=== PATIENT | female | born 1980 | race Caucasian/White ===

== ENCOUNTER 2018-04-27 01:01 | Emergency (ER) | payer OTHER ==
[~2018-04-27] VITALS: Ht 63.5 cm; Wt 65.3 kg
[2018-04-27] MEDS ORDERED: ORAL BIRTH CONTROL (01:32)
[2018-04-27] MEDS ORDERED: GABA100 PO (01:32)
[2018-04-27 01:52] LABS: BASOPHILS ABSOLUTE AUTO 0.04 K/mm3 (0.00-0.23); BASOPHILS PERCENT AUTO 1 % (0-2); EOSINOPHILS ABSOLUTE AUTO 0.14 K/mm3 (0.00-0.68); EOSINOPHILS PERCENT AUTO 2 % (0-6); Hematocrit 43.6 % (33.0-51.0); Hemoglobin 14.2 g/dL (11.5-16.0); IMMATURE GRAN ABSOLUTE AUTO 0.03 K/mm3 (0.00-0.10); IMMATURE GRAN PERCENT AUTO 0 % (0-1); LYMPHOCYTES ABSOLUTE AUTO 2.75 K/mm3 (0.84-5.20); LYMPHOCYTES PERCENT AUTO 33 % (21-46); MONOCYTES ABSOLUTE AUTO 0.51 K/mm3 (0.16-1.47); MONOCYTES PERCENT AUTO 6 % (4-13); Mean Corpuscular HGB 28.3 pg (26.0-34.0); Mean Corpuscular HGB Conc 32.6 g/dL (31.5-36.5); Mean Corpuscular Volume 87 fL (80-100); Mean Platelet Volume 9.6 fL (9.1-12.4); NEUTROPHILS ABSOLUTE AUTO 4.84 K/mm3 (1.96-9.15); NEUTROPHILS PERCENT AUTO 58 % (41-73); Platelet Count 341 K/mm3 (150-400); RDW Coefficient Variation 14.2 % (11.7-14.2); RDW Standard Deviation 45.5 fL (35.1-46.3); Red Blood Cell Count 5.01 M/mm3 (3.80-5.20); White Blood Cell Count 8.31 K/mm3 (4.00-11.30)
[2018-04-27 02:10] LABS: Alanine Aminotransfer (ALT/SGP 26 U/L (12-78); Albumin, Blood 3.8 g/dL (3.4-5.0); Albumin/Globulin Ratio 0.9 (0.8-1.8); Alk Phos 75 U/L (50-136); Anion Gap 8 mmol/L (6-16); Aspartate Aminotrans (AST/SGOT 20 U/L (12-37); Bilirubin, Total 0.3 mg/dL (0.1-1.0); Blood Urea Nitrogen 13 mg/dL (8-24); Bun/Creatinine Ratio 16.9 (12.0-20.0); CO2, Blood 23 mmol/L (21-32); Calcium, Blood 8.6 mg/dL (8.5-10.1); Chloride, Blood 110 mmol/L (98-108); Creatinine, Blood 0.77 mg/dL (0.40-1.00); Globulin, Blood 4.2 g/dL (2.2-4.0); Glomerular Filtration Rate >60 (60-); Glucose, Blood 89 mg/dL (70-99); Potassium, Blood 3.9 mmol/L (3.5-5.5); Sodium, Blood 141 mmol/L (136-145)
== END 2018-04-27 03:30 | disposition home or self-care (01) ==
LOC: ER 01:01
PROVIDERS: Emergency Medicine
DX: N80.9 Endometriosis, unspecified (principal); Z88.5 Allergy status to narcotic agent; Z88.8 Allergy status to other drugs, medicaments and biological substances; Z79.899 Other long term (current) drug therapy
CPT/HCPCS: 36415; 74176; 80053; 83690; 85025; 96361; 96374; 96375; 96376; 99284-25; J1170; J2405; J7030

== ENCOUNTER 2019-07-13 08:56 | Emergency (ER) | payer OTHER ==
[~2019-07-13] VITALS: Ht 157.5 cm; Wt 62.6 kg
[~2019-07-13 08:56] MED LIST: GABA100 PO; ORAL BIRTH CONTROL
[2019-07-13] MEDS ORDERED: Voltaren100 GM TOP (09:53)
[2019-07-13] MEDS ORDERED: Norco 5-325 Ta1 EACH PO (09:53)
[2019-07-13] MEDS ORDERED: CYCL10 PO (09:53)
== END 2019-07-13 10:00 | disposition home or self-care (01) ==
LOC: ER 08:56
DX: M54.2 Cervicalgia (principal); Z88.5 Allergy status to narcotic agent; Z88.8 Allergy status to other drugs, medicaments and biological substances; Z79.899 Other long term (current) drug therapy
CPT/HCPCS: 99283

== ENCOUNTER 2019-08-18 08:57 | Day surgery (SDC) | payer OTHER ==
[~2019-08-18] VITALS: Ht 154.9 cm; Wt 58.4 kg
[~2019-08-18 08:57] MED LIST changes: +CYCL10 PO; +Norco 5-325 Ta1 EACH PO; +Voltaren100 GM TOP
[2019-08-18] MEDS ORDERED: BACL10 PO ×2 (13:31→13:33)
[2019-08-18] MEDS ORDERED: DICLOFENAC SOD100 G1 TOP (13:31)
[2019-08-18] MEDS ORDERED: Excedrin Extra1 EACH PO (13:32)
[2019-08-18] MEDS ORDERED: ONDA4 (13:33)
[2019-08-18] MEDS ORDERED: PSEU120ER PO (13:33)
[2019-08-18] MEDS ORDERED: Zantac150 MG PO (13:33)
--- NOTE | 2019-08-18 13:48 | NUR ---
08/18/19 6366 Karon Kinney PT STATES HER PAIN IS NOW TOLERABLE 08/11. PT DENIES NAUSEA. PT TOLERATING PO FLUIDS AND SNACKS WELL. RN WENT OVER DISCHARGE INSTRUCTIONS UNITL ALL QUESTIONS WERE ANSWERED. PT READY FOR DISCHARGE.
--- NOTE | 2019-08-18 14:04 | NUR ---
08/18/19 1404 Mansi Prince TRANSDERMAL SCOPALOMINE PATCH APPLIED IN PACU PER DR NAT OSHEA
== END 2019-08-18 14:00 | disposition home or self-care (01) ==
LOC: ORSCSDS 08:57
PROVIDERS: Orthopaedic Surgery
PROC: 0SPD04Z Removal of Internal Fixation Device from Left Knee Joint, Open Approach (ICD-10-PCS; principal; 2019-08-18 10:30)
DX: Z96.9 Presence of functional implant, unspecified (principal); T84.84XA Pain due to internal orthopedic prosthetic devices, implants and grafts, initial encounter; M17.9 Osteoarthritis of knee, unspecified; Z79.899 Other long term (current) drug therapy
CPT/HCPCS: J0690; J2250; J2405; J3010; J7120

== ENCOUNTER 2020-01-11 00:52 | Inpatient (IN) | payer OTHER ==
[~2020-01-11] VITALS: Ht 154.9 cm; Wt 58.7 kg
[~2020-01-11 00:52] MED LIST changes: +BACL10 PO; +DICLOFENAC SOD100 G1 TOP; +Excedrin Extra1 EACH PO; +ONDA4; +PSEU120ER PO; +Zantac150 MG PO
[2020-01-11 01:17] LABS: BASOPHILS ABSOLUTE AUTO 0.04 K/mm3 (0.00-0.23); BASOPHILS PERCENT AUTO 0 % (0-2); EOSINOPHILS ABSOLUTE AUTO 0.06 K/mm3 (0.00-0.68); EOSINOPHILS PERCENT AUTO 1 % (0-6); Hematocrit 47.5 % (33.0-51.0); Hemoglobin 15.9 g/dL (11.5-16.0); IMMATURE GRAN ABSOLUTE AUTO 0.07 K/mm3 (0.00-0.10); IMMATURE GRAN PERCENT AUTO 1 % (0-1); LYMPHOCYTES ABSOLUTE AUTO 2.17 K/mm3 (0.84-5.20); LYMPHOCYTES PERCENT AUTO 17 % (21-46); MONOCYTES ABSOLUTE AUTO 0.52 K/mm3 (0.16-1.47); MONOCYTES PERCENT AUTO 4 % (4-13); Mean Corpuscular HGB 28.6 pg (26.0-34.0); Mean Corpuscular HGB Conc 33.5 g/dL (31.5-36.5); Mean Corpuscular Volume 85 fL (80-100); Mean Platelet Volume 9.3 fL (9.1-12.4); NEUTROPHILS ABSOLUTE AUTO 10.25 K/mm3 (1.96-9.15); NEUTROPHILS PERCENT AUTO 78 % (41-73); Platelet Count 310 K/mm3 (150-400); RDW Standard Deviation 40.5 fL (35.1-46.3); Red Blood Cell Count 5.56 M/mm3 (3.80-5.20); White Blood Cell Count 13.11 K/mm3 (4.00-11.30)
[2020-01-11 01:38] LABS: Alanine Aminotransfer (ALT/SGP 20 U/L (12-78); Albumin, Blood 4.5 g/dL (3.4-5.0); Albumin/Globulin Ratio 1.1 (0.8-1.8); Alk Phos 89 U/L (50-136); Anion Gap 7 mmol/L (6-16); Aspartate Aminotrans (AST/SGOT 18 U/L (12-37); Bilirubin, Total 0.5 mg/dL (0.1-1.0); Blood Urea Nitrogen 12 mg/dL (8-24); CO2, Blood 25 mmol/L (21-32); Calcium, Blood 9.6 mg/dL (8.5-10.1); Chloride, Blood 108 mmol/L (98-108); Creatinine, Blood 0.75 mg/dL (0.40-1.00); Glomerular Filtration Rate >60 (60-); Glucose, Blood 144 mg/dL (70-99); Potassium, Blood 4.4 mmol/L (3.5-5.5); Sodium, Blood 140 mmol/L (136-145); Total Protein, Blood 8.5 g/dL (6.4-8.2); Troponin I <0.015 ng/mL (0.000-0.040)
[2020-01-11] MEDS ORDERED: PSEU120ER PO (05:54)
[2020-01-11 06:20] LABS: Free Thyroxine 1.43 ng/dL (0.70-1.60)
[2020-01-11 06:21] LABS: Thyroid Stimulating Hormone 7.73 uIU/mL (0.360-4.800)
--- NOTE | 2020-01-11 07:35 | NUR ---
PT T/F FROM ER TO MEDICAL FLOOR THIS MORNING. AAOX3. TACHYCARDIC- PT REPORTS FEELING SOME ANXIETY. IV NS @ 100/HR. PT DENIES N/V AT TOA. STATES PAIN IS TOLERABLE. ABD DISTENTION NORMAL PER PT. TENDERNESS THROUGOUT ABD. BT ACTIVE. PT REPORTS PASSING FLATUS LAST NIGHT. CURRENTLY NPO. ZOFRAN GIVEN FOR NAUSEA. BED LOW, CALL BUTTON EXPLAINED AND WITHIN REACH.
--- NOTE | 2020-01-11 12:12 | NUR ---
PER DR. SLOAN, CANCEL NS 1.5L AND KEEP NS CONTINUOUS. ALSO, CHANGED NEURONTIN TO 100 MG TID.
--- NOTE | 2020-01-11 13:09 | NUR ---
Upon receiving an admit referral for spiritual care, I visit patient. Patient is lying in bed and resting but easily awakens to the sound of her name. Patient immediately shares about her [employer] (patient attends [address] [place] [address]), the many stressors in her life ( including; having 2 special needs children at home and trying to work at home and manage her 3 children) and about her medical issues. I listen empathically, encourage self-care, reinforce helpful attitudes and practices and provide anxiety containment, pastoral spiritual counselor and prayer. Patient responds well and shows signs of reduced stress. Patient voices appreciation for the visit. i will continue to remain available to patient and family.
--- NOTE | 2020-01-11 16:56 | NUR ---
PT C/O ABDOMINAL PAIN THAT IS SHARP AND CONSTANT IN NATURE. PT ALSO HAD GREENISH CLEAR EMESIS WITH C/O PAIN AND EXERTION. DR. SLOAN NOTIFIED, ORDER RECEIVED FOR COMPAZINE IV AND SURGICAL CONSULT.
--- NOTE | 2020-01-11 18:47 | NUR ---
Shift Summary A/Ox4, pleasant and cooperative with care. Calls appropriately for needs. Medicated for 03/11 abd & epigastric pain x 2 per EMAR with short term good results. Medicated for nausea x 2, had 2 episodes of green clear bilious emesis. Patient remains NPO except Gabapentin as patient tolerates. Dr. Emerson consulted and seen patient this evening. Up in room with SBA d/t abdominal pain and narcotics for safety. Will continue to monitor.
[2020-01-12 04:37] LABS: BASOPHILS ABSOLUTE AUTO 0.01 K/mm3 (0.00-0.23); BASOPHILS PERCENT AUTO 0 % (0-2); EOSINOPHILS ABSOLUTE AUTO 0.01 K/mm3 (0.00-0.68); EOSINOPHILS PERCENT AUTO 0 % (0-6); Hematocrit 40.5 % (33.0-51.0); Hemoglobin 13.1 g/dL (11.5-16.0); IMMATURE GRAN ABSOLUTE AUTO 0.01 K/mm3 (0.00-0.10); IMMATURE GRAN PERCENT AUTO 0 % (0-1); LYMPHOCYTES ABSOLUTE AUTO 0.73 K/mm3 (0.84-5.20); LYMPHOCYTES PERCENT AUTO 16 % (21-46); MONOCYTES ABSOLUTE AUTO 0.38 K/mm3 (0.16-1.47); MONOCYTES PERCENT AUTO 8 % (4-13); Mean Corpuscular HGB 28.2 pg (26.0-34.0); Mean Corpuscular HGB Conc 32.3 g/dL (31.5-36.5); Mean Corpuscular Volume 87 fL (80-100); Mean Platelet Volume 9.8 fL (9.1-12.4); NEUTROPHILS ABSOLUTE AUTO 3.41 K/mm3 (1.96-9.15); NEUTROPHILS PERCENT AUTO 75 % (41-73); Platelet Count 234 K/mm3 (150-400); RDW Coefficient Variation 13.1 % (11.7-14.2); RDW Standard Deviation 41.7 fL (35.1-46.3); Red Blood Cell Count 4.64 M/mm3 (3.80-5.20); White Blood Cell Count 4.55 K/mm3 (4.00-11.30)
[2020-01-12 05:19] LABS: Alanine Aminotransfer (ALT/SGP 15 U/L (12-78); Albumin, Blood 3.2 g/dL (3.4-5.0); Albumin/Globulin Ratio 1.1 (0.8-1.8); Alk Phos 63 U/L (50-136); Anion Gap 5 mmol/L (6-16); Aspartate Aminotrans (AST/SGOT 13 U/L (12-37); Bilirubin, Total 1.5 mg/dL (0.1-1.0); Blood Urea Nitrogen 12 mg/dL (8-24); Bun/Creatinine Ratio 20.1 (12.0-20.0); CO2, Blood 26 mmol/L (21-32); Chloride, Blood 110 mmol/L (98-108); Glomerular Filtration Rate >60 (60-); Glucose, Blood 118 mg/dL (70-99); Potassium, Blood 3.6 mmol/L (3.5-5.5); Sodium, Blood 141 mmol/L (136-145)
[2020-01-12 05:21] LABS: Calcium, Blood 7.6 mg/dL (8.5-10.1); Total Protein, Blood 6.2 g/dL (6.4-8.2)
--- NOTE | 2020-01-12 06:28 | NUR ---
SHIFT SUMMARY PT IS A 39 Y/O FEMALE, ADMITTED FOR AN EARLY SBO. PT IS NPO WITH NS @ 100 ML/HR CONTINUOUS. SHE IS A&O X 3, SBA TO THE BATHROOM. SHE WAS MEDICATED FOR PAIN WITH FENTANYL X 2, AND FOR NAUSEA WITH ZOFRAN AND COMPAZINE. NO COMPLAINTS OF SOB. HR WAS SLIGHTLY TACHY IN THE 100S. VITAL SIGNS OTHERWISE STABLE. NO OTHER ACUTE CHANGES IN PT CONDITION NOTED. WILL CONTINUE TO MONITOR AND TREAT PER EMAR UNTIL HAND OFF TO DAY SHIFT RN.
--- NOTE | 2020-01-12 13:06 | NUR ---
Surgical site prepped with 2% Chlorhexidine cloth wipe. History, Chart, Medications and Allergies reviewed before start of procedure. Lungs clear T/O to Auscultation. Patient confirms NPO status and agrees with scheduled surgery. Pre-Op teaching done. Pt verbalizes understanding.
--- NOTE | 2020-01-12 15:55 | NUR ---
REPORT GIVEN TO LÓPEZ AT 1551 WHO WILL ASSUME CARE AT THIS TIME.
--- NOTE | 2020-01-12 16:25 | NUR ---
01/12/20 1625 Sonja Curiel VERIFICATIONS: EDIT CHART.
--- NOTE | 2020-01-12 16:45 | NUR ---
PT ARRIVED TO ROOM 228 FROM PACU S/P SBO RESECTION MIDLINE DRESSING EDMOND C/D/I PT REPORTS MIN PAIN 3/10 PT NO NAUSEA ABSENT BT'SX4 PT OK TO HAVE SIPS AND CHIPS ONLY
--- NOTE | 2020-01-12 18:35 | NUR ---
PT SLEEPING WAKES TO VERBAL STIMULI STATED PAIN IS 2-3/10 ASSISTED TO BATHROOM TO VOID
[2020-01-13 05:30] LABS: Hematocrit 37.9 % (33.0-51.0); Hemoglobin 12.4 g/dL (11.5-16.0); Mean Corpuscular HGB 28.9 pg (26.0-34.0); Mean Corpuscular HGB Conc 32.7 g/dL (31.5-36.5); Mean Corpuscular Volume 88 fL (80-100); Mean Platelet Volume 9.8 fL (9.1-12.4); Platelet Count 208 K/mm3 (150-400); RDW Coefficient Variation 13.6 % (11.7-14.2); RDW Standard Deviation 44.5 fL (35.1-46.3); Red Blood Cell Count 4.29 M/mm3 (3.80-5.20); White Blood Cell Count 6.42 K/mm3 (4.00-11.30)
[2020-01-13 05:54] LABS: Anion Gap 5 mmol/L (6-16); Blood Urea Nitrogen 10 mg/dL (8-24); CO2, Blood 26 mmol/L (21-32); Calcium, Blood 7.9 mg/dL (8.5-10.1); Chloride, Blood 109 mmol/L (98-108); Creatinine, Blood 0.59 mg/dL (0.40-1.00); Glomerular Filtration Rate >60 (60-); Glucose, Blood 103 mg/dL (70-99); Potassium, Blood 3.7 mmol/L (3.5-5.5); Sodium, Blood 140 mmol/L (136-145)
[2020-01-13 06:05] LABS: BAND PERCENT MAN 39 % (0-8); BASOPHILS PERCENT MAN 0 % (0-2); EOSINOPHILS PERCENT MAN 0 % (0-6); LYMPHOCYTES ABSOLUTE MAN 0.89 K/mm3 (0.84-5.20); LYMPHOCYTES PERCENT MAN 14 % (21-46); MONOCYTES ABSOLUTE MAN 0.77 K/mm3 (0.16-1.47); MONOCYTES PERCENT MAN 12 % (4-13); NEUTROPHILS ABSOLUTE MAN 4.75 K/mm3 (1.96-9.15); SEG NEUTROPHILS PERCENT MAN 35 % (41-73); TOTAL CELLS COUNTED 100
--- NOTE | 2020-01-13 06:52 | NUR ---
SUMMARY PT AMBULATORY WITH SBA. VERB ADEQUATE PAIN CONTROL. NO C/O NAUSEA. NO FLATUS TONIGHT. VOIDING WITHOUT DIFF. SITTING UP IN BED THIS AM. TALKATIVE AND PLEASANT.
--- NOTE | 2020-01-13 20:17 | NUR ---
END OF SHIFT SUMMARY: PATIENT PAIN CONTROLLED WITH PRN MEDICATIONS, REPOSITIONING AND HEAT. PATIENT AMBULATED GENTLY IN THE SOTO MULTIPLE TIMES. PATIENT UP TO CHAIR ONE TIME. PATIENT CONTINUED TO DENY FLATUS THROUGHOUT HER SHIFT. PATIENT TOLERATED CLEAR LIQUID DIET WITHOUT INCREASED PAIN, NAUSEA OR ABD CRAMPING. PATIENT DENIED NAUSEA OR INCREASED DISCOMFORT UNTIL THE END OF SHIFT. PAIN STARTED INCREASING AROUND DINNER TIME. AFTER PRN PAIN MEDICATION ADMINISTERED (SEE EMAR), PATIENT CONTINUED TO HAVE INCREASED PAIN AND NAUSEA . DISCUSSED WITH CUBE CUTTER. DISCUSSED WITH PATIENT THE PROCESS OF INCREASING THE MOTILITY OF THE GUT CAN SOMETIMES LEAD TO INCREASED PAIN. MEDICATED FOR BREAKTHROUGH PAIN AND NAUSEA. PATIENT REPORTED INCREASED COMFORT.
--- NOTE | 2020-01-14 16:00 | NUR ---
LATE ENTRY: LOVENOX: 1300 PATIENT REQUESTING THAT HER LOVENOX BE DISCONTINUED. DISCUSSED WITH DR. SLOAN. NEW ORDER RECEIVED TO DISCONTINUE LOVENOX. DISCUSSED THE RISK AND BENEFITS CAREFULLY WITH THE PATIENT (INCREASED POTENTIAL FOR BLOOD CLOT FORMATION VS. NO LONGER HAVE AN INJECTION). AFTER THIS DISCUSSION, PATIENT REPORTED THAT SHE WOULD LIKE TO RECEIVE TODAY'S DOSE.
--- NOTE | 2020-01-14 19:35 | NUR ---
SHIFT SUMMARY: PATIENT INITALLY EXPRESSED SOME NAUSEA IN THE AM. MEDICATED PER PRNS AND PROVIDED WITH A WARM BLANKET. PATIENT DECIDED LATER IN THE DAY TO WORK ON CLEAR LIQUIDS AGAIN RATHER THAN FULL LIQUIDS. PATIENT TOLERATING WITHOUT INCREASED CRAMPING OR DISCOMFORT. PATIENT AMBULATED IN THE SOTO MULTIPLE TIMES. PATIENT USED REPOSITIONING AND STANDING IN THE ROOM TO HELP WITH GAS BUBBLES AND COMFORT. PATIENT REPORTS THAT SHE CAN FEEL THE GAS IN HER ABDOMEN, BUT STILL HAS YET TO PASS ANY. PATIENT HAS HAD SOME BURPS. PATIENT HAS BOWEL TONES IN ALL 4 QUADRANTS, MORE PROMINENT ON THE RIGHT SIDE THAN THE LEFT. PATIENT ALSO REPORTS MORE PAIN ON THE RIGHT SIDE THAN THE LEFT. EDUCATION PROVIDED ON THE NEED TO CONTINUE TO STAY WITH LIQUIDS AND EASY TO TOLERATE FOODS UPON DISCHARGE. PATIENT REPORTS UNDERSTANDING.
--- NOTE | 2020-01-14 21:20 | NUR ---
PT UP IN HALLS. INCREASED ABD DISTENSION NOTED, BUT FIRST TIME PASSING FLATUS WHEN BACK IN ROOM.
--- NOTE | 2020-01-15 08:10 | NUR ---
SUMMARY PT PASSING SMALL AMNTS FLATUS TONIGHT.INCREASED BLOATING NOTED WITH DISCOMFORT.
--- NOTE | 2020-01-15 16:24 | NUR ---
SHIFT SUMMARY PT CONT TO HAVE NAUSEA THIS SHIFT. LARGE AMOUNTS OF DARK GREEN LIQUID EMESIS X2 THIS SHIFT. ZOFRAN GIVEN PER ORDERS. BTS HYPOACTIVE AND PT REPORTS FEELING MORE BLOATED AND REPORTS PASSING MINIMAL GAS. ONLY TOLERATING SMALL SIPS OF CLEAR LIQS. PT INDEP IN ROOM AND HAS AMBULATED HALLWAY AND HAS BEEN IN CHAIR TODAY. PT REPORTS TOLERABLE PAIN TO ABD AND DENIES NEED FOR PAIN MEDICATIONS. EDMOND WOUND VAC TO MIDLINE ABD REMAINS UNCHANGED. PT NPO CURRENTLY EXCEPT FOR SMALL SIPS AND CHIPS. PT USES CALL LIGHT APPROPRIATELY.
--- NOTE | 2020-01-15 21:59 | NUR ---
HOPE'S IV DEMONSTRATED A SMALL AMOUNT OF LEAKAGE WHEN FLUSHED. IT IS CURRENTLY SALINE LOCKED. SHE STATES THAT SHE DOES NOT WISH TO HAVE IT REMOVED AT THIS TIME D/T THE SIGNIFICANT DIFFICULTY THAT SHE HAS HAD IN THE PAST WITH IV PLACEMENT WHICH SHE ATTRIBUTES TO SMALL VESSELS D/T HER HEART HX.
--- NOTE | 2020-01-16 04:37 | NUR ---
SHIFT SUMMARY: SATHISH IS A&OX4, TOLERATING SIPS AND ICE CHIPS WELL, SHE IS OTHERWISE NPO. VSS, NO ACUTE EVENTS OVERNIGHT, ORA. SHE IS INDEPENDENT IN THE ROOM AND AMBULATING THE HALLWAY. SHE REPORTS PASSING INCREASED AMOUNTS OF FLATUS WELL BURPING. SHE REPORTS ADEQUATE PAIN CONTROL WITH ONE TABLET OF NORCO 5/325 MG. SHE DID TAKE THE ZOFRAN FOR NAUSEA EARLY IN THE SHIFT. EDMOND TO MIDLINE ABD DRSG. SHE IS ABLE TO MAKE HER NEEDS KNOWN. SHE IS LYING IN BED WITH THE CALL LIGHT IN REACH. WILL REPORT TO DAY SHIFT RN.
--- NOTE | 2020-01-16 12:12 | NUR ---
Patient is sitting up in bed and alert. Patient immediately tells me that she had a horrible day yesterday but is in much better spirits today. She talks about how much she misses her family and how much they miss her. I turn patient's conversation to all the wonderful things waiting for her when she returns home. Patient talks about the orthodox people willing to come over and help her, about her family's response when she walks through the door and about that first night back in her own bed. I listen empatically, highlight all the good up ahead, and provide pastoral industrial relations counselor and prayer. Patient responds well and shows signs of an elevated mood.
--- NOTE | 2020-01-16 16:44 | NUR ---
SHIFT SUMMARY PT REPORTS FEELING BETTER TODAY THAN YESTERDAY. SHE REPORTS PASSING MODERATE AMOUNTS OF FLATUS AND FEELING LESS BLOATED. DENIES N/V. SLOWLY DANK CLEAR LIQ DIET AND CAN ADVANCE TOLERATED BUT PT WANTS TO STAY WITH CLEARS AT THIS TIME. PT HAS DENIED NEEDING PAIN MEDICATION. MIDLINE EDMOND DRESSING IS CDI. PT INDEP IN ROOM AND AMBULATING HALLWAYS. POSSIBLE D/C HOME TOMORROW. CALL LIGHT WITHIN REACH.
--- NOTE | 2020-01-16 19:43 | NUR ---
CHANGE WHILE IN SHOWER.
--- NOTE | 2020-01-17 05:06 | NUR ---
SHIFT SUMMARY: PT POD #5 FOR BOWEL RESECTION. MIDLINE EDMOND INTACT WITH FOAM COMPRESSED. PT DID HAVE ONE EPISODE OF EMESIS WITH APPROX 400CC OUT. NEW ORDER FOR SUBLINGUAL ZOFRAN WHICH WAS EFFECTIVE. MEDICATED WITH ZOFRAN ONCE. PT DENIES N/V THIS MORNING. DANK SMALL AMOUNT OF CLEAR LIQ DIET. PT PASSING A LOT OF FLATUS. PT REPORTS HAVING ONE SMALL HARD/FORMED BM. PT AMBULATING HALLWAY T/O SHIFT. ACTIVE BT IN ALL QUADRANTS. INDEPENDENT IN ROOM. VOIDING WELL. POSSIBLE DISCHARGE TODAY.
[2020-01-17] MEDS ORDERED: DOCU100 PO (10:19)
[2020-01-17] MEDS ORDERED: MIRALAX17 GM PO (10:20)
--- NOTE | 2020-01-17 11:32 | NUR ---
1122 DISCHARGED TO HOME WITH HER PT DANK SMALL AMOUNTS OF CLEAR LIQUIDS, DENIES NAUSEA
== END 2020-01-17 11:26 | disposition home or self-care (01) | DRG 345 ==
LOC: ER 00:52 → MEDS 00:53 → SURS 01-12 16:03
PROVIDERS: Emergency Medicine; Surgery; ADMIT Internal Medicine
PROC: 0DC80ZZ Extirpation of Matter from Small Intestine, Open Approach (ICD-10-PCS; principal; 2020-01-12 12:45)
DX: T18.3XXA Foreign body in small intestine, initial encounter (principal); R18.8 Other ascites; X58.XXXA Exposure to other specified factors, initial encounter; Y92.9 Unspecified place or not applicable
CPT/HCPCS: 36415; 71046; 74177; 80048; 80053; 81025; 83690; 84439; 84443; 84484; 85025; 88302; 93005; 93010; 96361; 96372; 96374; 96375; 96376; 99285-25; A9270-GY; C9113; G0378; J0690; J0780; J1100; J1170; J1650; J1885; J2250; J2405; J2704; J2710; J3010; J7030; J7120; Q9967; U0002

== ENCOUNTER 2023-08-30 17:54 | Emergency (ER) | payer OTHER ==
[~2023-08-30] VITALS: Ht 154.9 cm; Wt 60.8 kg
[~2023-08-30 17:54] MED LIST changes: +DOCU100 PO; +MIRALAX17 GM PO
[2023-08-30 18:16] VITALS: BP 131/94
[2023-08-30 18:50] LABS: BASOPHILS ABSOLUTE AUTO 0.03 K/mm3 (0.00-0.23); BASOPHILS PERCENT AUTO 1 % (0-2); EOSINOPHILS ABSOLUTE AUTO 0.09 K/mm3 (0.00-0.68); EOSINOPHILS PERCENT AUTO 2 % (0-6); Hematocrit 44.7 % (33.0-51.0); Hemoglobin 15.2 g/dL (11.5-16.0); IMMATURE GRAN ABSOLUTE AUTO 0.02 K/mm3 (0.00-0.10); IMMATURE GRAN PERCENT AUTO 0 % (0-1); LYMPHOCYTES ABSOLUTE AUTO 2.62 K/mm3 (0.84-5.20); LYMPHOCYTES PERCENT AUTO 44 % (21-46); MONOCYTES ABSOLUTE AUTO 0.32 K/mm3 (0.16-1.47); MONOCYTES PERCENT AUTO 5 % (4-13); Mean Corpuscular Volume 88 fL (80-100); NEUTROPHILS ABSOLUTE AUTO 2.89 K/mm3 (1.96-9.15); NEUTROPHILS PERCENT AUTO 48 % (41-73); Platelet Count 304 K/mm3 (150-400); RDW Coefficient Variation 12.4 % (11.7-14.2); RDW Standard Deviation 39.2 fL (35.1-46.3); Red Blood Cell Count 5.07 M/mm3 (3.80-5.20); White Blood Cell Count 5.97 K/mm3 (4.00-11.30)
[2023-08-30 19:16] LABS: Albumin, Blood 4.1 g/dL (3.4-5.0); Albumin/Globulin Ratio 1.1 (0.8-1.8); Bilirubin, Total 0.7 mg/dL (0.1-1.0); Bun/Creatinine Ratio 21.1 (12.0-20.0); Calcium, Blood 9.1 mg/dL (8.5-10.1); Creatinine, Blood 0.62 mg/dL (0.40-1.00); Globulin, Blood 3.6 g/dL (2.2-4.0); Potassium, Blood 4.1 mmol/L (3.5-5.5); Total Protein, Blood 7.7 g/dL (6.4-8.2)
[2023-08-30] MEDS ORDERED: FAMO20 PO (20:38)
== END 2023-08-30 20:49 | disposition home or self-care (01) ==
LOC: ER 17:54
PROVIDERS: Student in an Organized Health Care Education/Training Program
DX: M79.672 Pain in left foot (principal); Z79.899 Other long term (current) drug therapy; Z88.1 Allergy status to other antibiotic agents; Z88.2 Allergy status to sulfonamides; Z88.5 Allergy status to narcotic agent; Z88.8 Allergy status to other drugs, medicaments and biological substances
CPT/HCPCS: 80053; 85025; 93971; 99284-25

== ENCOUNTER → 2024-09-22 | Outpatient (CLI) | payer OTHER ==
[~2024-09-22] MED LIST changes: +FAMO20 PO
[2024-09-27 16:44] LABS: CALPROTECTIN,FECAL 36 ug/g (<=49)
== END ==
LOC: LAB SHORT 11:15 → LAB 11:15
PROVIDERS: Physician Assistant
DX: K58.2 Mixed irritable bowel syndrome (principal)
CPT/HCPCS: 83993

== ENCOUNTER → 2025-01-29 | Outpatient (CLI) | payer OTHER | LOC: LAB SHORT 15:01 → LAB 15:01 | DX: N30.00 Acute cystitis without hematuria (principal) | CPT/HCPCS: 87077; 87086; 87186 ==

== ENCOUNTER → 2025-03-14 | Outpatient (CLI) | payer OTHER | END | disposition home or self-care (01) | LOC: LAB 16:44 → LAB SHORT 16:44 | PROVIDERS: Obstetrics & Gynecology | DX: Z12.4 Encounter for screening for malignant neoplasm of cervix (principal) | CPT/HCPCS: 87624; G0145 ==

== ENCOUNTER → 2025-05-18 | Outpatient (CLI) | payer OTHER ==
[2025-05-18 10:48] LABS: BASOPHILS ABSOLUTE AUTO 0.02 K/mm3 (0.00-0.23); BASOPHILS PERCENT AUTO 0 % (0-2); EOSINOPHILS ABSOLUTE AUTO 0.01 K/mm3 (0.00-0.68); EOSINOPHILS PERCENT AUTO 0 % (0-6); Hematocrit 45.0 % (33.0-51.0); Hemoglobin 15.5 g/dL (11.5-16.0); IMMATURE GRAN ABSOLUTE AUTO 0.03 K/mm3 (0.00-0.10); IMMATURE GRAN PERCENT AUTO 0 % (0-1); LYMPHOCYTES ABSOLUTE AUTO 0.53 K/mm3 (0.84-5.20); LYMPHOCYTES PERCENT AUTO 6 % (21-46); MONOCYTES ABSOLUTE AUTO 0.13 K/mm3 (0.16-1.47); MONOCYTES PERCENT AUTO 2 % (4-13); Mean Corpuscular HGB Conc 34.4 g/dL (31.5-36.5); Mean Corpuscular Volume 88 fL (80-100); NEUTROPHILS ABSOLUTE AUTO 7.63 K/mm3 (1.96-9.15); NEUTROPHILS PERCENT AUTO 91 % (41-73); NRBC ABSOLUTE 0.00 K/mm3 (0.00-0.02); NRBC Auto 0.0 /100 WBC (0.0-0.2); Platelet Count 287 K/mm3 (150-400); RDW Coefficient Variation 12.5 % (11.7-14.2); RDW Standard Deviation 40.8 fL (35.1-46.3)
[2025-05-18 10:59] LABS: Alanine Aminotransfer (ALT/SGP 35.0 U/L (12-78); Albumin, Blood 4.1 g/dL (3.4-5.0); Albumin/Globulin Ratio 1.2 (0.8-1.8); Anion Gap 17.0 mmol/L (3-11); Aspartate Aminotrans (AST/SGOT 30.0 U/L (12-37); Bilirubin, Total 1.3 mg/dL (0.1-1.0); Blood Urea Nitrogen 16.0 mg/dL (8-24); CO2, Blood 24.0 mmol/L (21-32); Calcium, Blood 9.2 mg/dL (8.5-10.1); Chloride, Blood 105.0 mmol/L (98-108); Creatinine, Blood 0.72 mg/dL (0.40-1.00); Globulin, Blood 3.4 g/dL (2.2-4.0); Glucose, Blood 104.0 mg/dL (70-99); Potassium, Blood 3.9 mmol/L (3.5-5.5); Sodium, Blood 142.0 mmol/L (136-145); Total Protein, Blood 7.5 g/dL (6.4-8.2)
== END ==
LOC: LAB SHORT 10:44 → LAB 10:44
PROVIDERS: Physician Assistant
DX: R10.10 Upper abdominal pain, unspecified (principal); R31.9 Hematuria, unspecified
CPT/HCPCS: 80053; 83690; 85025; 87086